=== PATIENT | male | born 1930 | race Caucasian/White ===

== ENCOUNTER 2016-08-14 06:33 | Day surgery (SDC) | payer MEDICARE, MEDICAID ==
[2016-08-14 07:01] VITALS: BMI 25.7
[2016-08-14] MEDS ORDERED: Propofol 10 mg/ml Inj (20 ML) ONE (07:57)
[2016-08-14] MEDS ORDERED: Lactated Ringer's 500 ML IV ONE ×2 (08:01)
--- NOTE | 2016-08-14 08:16 | CP.SDSHP ---
Same Day Surgery H & P - History Proposed Procedure: colonoscopy Pre-Op Diagnosis: hematochezia - Previous Medical/Surgical History Cardiac: Hypertension, ASHD/CAD, Other (hypercholesterolemia) Previous Surgical History: CABG. Cholecystectomy - Allergies Allergies: Allergies No Known Allergies Allergy (Verified 08/14/16 07:00) - Physical Exam Vital Signs: Vital Signs 08/14/16 07:06 Temperature 97.3 F L Pulse Rate 80 Respiratory 20 Rate Blood Pressure 143/69 O2 Sat by Pulse 97 Oximetry Mental Status: Alert & Oriented x3 Neuro: WNL Heart: WNL Lungs: WNL GI: WNL - Impression Impression: hematochezia Pt. Evaluated Today:Candidate for Anesthesia & Procedure: Yes - Date & Time Date: 08/14/16 Time: 08:16 Short Stay Discharge - Short Stay Discharge Admitting Diagnosis/Reason for Visit: GASTROINTESTINAL HEMORRHAGE, UNSPECIFIED Disposition: HOME/ ROUTINE
[2016-08-14 08:55] VITALS: TEMP 97.8
[2016-08-14 09:22] VITALS: O2SAT 97
[2016-08-14 09:55] VITALS: BP 100/60; PULSE 66; RESP 18
== END 2016-08-14 09:50 | disposition home or self-care (01) ==
LOC: C.ENDO 06:33
PROVIDERS: ATTEND Internal Medicine Gastroenterology
DX: D12.5 Benign neoplasm of sigmoid colon (principal); D12.0 Benign neoplasm of cecum; K92.2 Gastrointestinal hemorrhage, unspecified; R19.4 Change in bowel habit; K59.00 Constipation, unspecified; K64.8 Other hemorrhoids
CPT/HCPCS: 45388; 88305; J2704; J7120